=== PATIENT | male | born 1940 | race Hispanic/Latino ===

== ENCOUNTER → 2019-02-06 | Outpatient (CLI) | payer OTHER ==
[~2019-02-06] MED LIST: AMIO200T5 PO; ASPI-1181 PO; CARV12.511 PO; CHOL500050 PO; NITR0.3T11 SL; SACU1TAB PO; SIMV20TA6 PO; TYL3 PO
== END | disposition home or self-care (01) ==
LOC: SHCH 13:18
PROVIDERS: ATTEND Internal Medicine Cardiovascular Disease
DX: I35.1 Nonrheumatic aortic (valve) insufficiency (principal); I25.5 Ischemic cardiomyopathy; I11.9 Hypertensive heart disease without heart failure
CPT/HCPCS: 93306

== ENCOUNTER 2023-10-28 07:02 | Day surgery (SDC) | payer OTHER ==
[2023-10-22 12:25] LABS: BASOPHILS # (AUTO) 0.06 K/uL (0.00-0.20); EOSINOPHILS # (AUTO) 0.28 K/uL (0.00-0.70); EOSINOPHILS % (AUTO) 4.6 % (0.0-8.0); HEMATOCRIT 39.6 % (42-54); IMMATURE GRANULOCYTE ABSOLUTE 0.02 K/uL (0-1); LYMPHOCYTES # (AUTO) 1.4 K/uL (1.0-4.8); LYMPHOCYTES % (AUTO) 23.2 % (21.0-51.0); MEAN CORPUSCULAR HEMOGLOBIN 30.4 pg (27.0-33.0); MEAN CORPUSCULAR HGB CONC 32.8 g/dL (32.0-36.0); MEAN CORPUSCULAR VOLUME 92.7 fL (79-99); MONOCYTES # (AUTO) 0.6 K/uL (0.1-1.0); MONOCYTES % (AUTO) 10.5 % (3.0-13.0); NEUTROPHILS # (AUTO) 3.7 K/uL (1.8-7.7); NEUTROPHILS % (AUTO) 60.4 % (40.0-77.0); PLATELET COUNT (AUTO) 121 K/uL (130-400); RED BLOOD CELL COUNT(AUTO) 4.27 MIL/uL (4.50-6.20); RED CELL DISTRIBUTION WIDTH 15.1 % (11.0-15.5); WHITE BLOOD COUNT (AUTO) 6.1 K/uL (4.8-10.8)
[2023-10-22 12:34] LABS: INR 1.03 (0.85-1.15); PROTHROMBIN TIME 11.9 SEC (9.6-11.6)
[2023-10-22 12:36] LABS: PARTIAL THROMBOPLASTIN TIME 32.1 SEC (26.3-35.5)
[2023-10-22 12:39] LABS: APPEARANCE,URINE CLOUDY (CLEAR); BILIRUBIN,URINE NEGATIVE (NEGATIVE); COLOR,URINE YELLOW (YELLOW); GLUCOSE, URINE (UA) >=1000 mg/dL (NEGATIVE); KETONES,URINE NEGATIVE (NEGATIVE); LEUKOCYTE ESTERASE ,URINE 500 Leu/uL (NEGATIVE); NITRATE,URINE NEGATIVE (NEGATIVE); OCCULT BLOOD,URINE LARGE (NEGATIVE); PROTEIN,URINE 50 mg/dL (NEGATIVE); UROBILINOGEN,URINE 0.2 mg/dL (0.2-1.0)
[2023-10-22 12:40] LABS: ADD UA MICROSCOPIC YES
[2023-10-22 12:46] LABS: BACTERIA,URINE MOD /HPF (None Seen); MUCUS,URINE RARE LPF (None Seen); RBC,URINE TNTC /HPF (0-1); WBC CLUMP MANY /HPF (0-1); WBC,URINE TNTC /HPF (0-1)
[2023-10-22 12:55] VITALS: BP 138/66; PULSE 67; RESP 16
[2023-10-22 13:42] LABS: CREATININE 1.1 mg/dL (0.5-1.5); POTASSIUM 4.1 mmol/L (3.5-5.1)
[~2023-10-28] VITALS: Ht 167.6 cm; Wt 68.8 kg
[2023-10-28] VITALS (18 sets, daily range): BP systolic 131–163; BP diastolic 70–87; PULSE 59–67; RESP 12–18
[2023-10-28] MEDS: ISOVUE-300 100 ML VIAL IV ONE
[2023-10-28] MEDS: CEFAZOLIN SODIUM 2 GM VIAL IVPB ONE
[~2023-10-28 07:02] MED LIST changes: +AMIO100T4 PO; -AMIO200T5 PO; +APIX5TAB PO; -ASPI-1181 PO; +ATOR40TA71 PO; +CARV25TA PO; -CHOL500050 PO; +DAPA10TA PO; +FERS325 PO; +FINA5TAB41 PO; +LISI5TAB21 PO; -NITR0.3T11 SL; +NITR0.4T50 SL; -SACU1TAB PO; -SIMV20TA6 PO; +TAMS-1 PO; -TYL3 PO
[2023-10-28] MEDS ORDERED: CEFTRIAXONE 1G VIAL ONE (08:05)
[2023-10-28] MEDS: LACTATED RINGERS 1000ML 1,000 ML IV ONE (08:48)
[2023-10-28] MEDS: GENTAMICIN 80 MG/NS 100 ML PB 100 ML IV ONE (10:20)
[2023-10-28] MEDS ORDERED: LIDOCAINE PF 100MG/5ML (2%) SYRINGE 5ML ONE (10:43)
[2023-10-28] MEDS ORDERED: GLYCOPYRROLATE 0.2 MG/ML 5 ML VIAL ONE (10:44)
[2023-10-28] MEDS ORDERED: ROCURONIUM BROMIDE 10MG/1ML 5ML VL ONE (10:44)
[2023-10-28] MEDS ORDERED: PROPOFOL 10 MG/ML 20ML VIAL IV ONE (10:44)
[2023-10-28] MEDS ORDERED: FENTANYL CITRATE PF 50 MCG/1 ML 2ML VIAL ONE ×2 (10:44→11:54)
[2023-10-28] MEDS ORDERED: MIDAZOLAM HCL 1 MG/ML 2ML VIAL ONE (10:57)
[2023-10-28] MEDS ORDERED: ONDANSETRON 4MG INJ ONE (12:19)
[2023-10-28] MEDS ORDERED: NEOSTIGMINE METHYLSULFATE 1MG/ML IV ONE (12:32)
== END 2023-10-28 14:50 | disposition home or self-care (01) ==
LOC: DAH 07:02
PROVIDERS: ATTEND Urology
DX: N40.1 Benign prostatic hyperplasia with lower urinary tract symptoms (principal); N41.0 Acute prostatitis; N41.1 Chronic prostatitis; R33.8 Other retention of urine; E78.5 Hyperlipidemia, unspecified; E11.9 Type 2 diabetes mellitus without complications; I11.0 Hypertensive heart disease with heart failure; I50.22 Chronic systolic (congestive) heart failure; F17.210 Nicotine dependence, cigarettes, uncomplicated; Z83.3 Family history of diabetes mellitus; Z82.49 Family history of ischemic heart disease and other diseases of the circulatory system; Z79.899 Other long term (current) drug therapy
CPT/HCPCS: 80048; 85025; 85610; 85730; 87077; 87088; 87186; 81001; 36415; 71045; 93005; 52648; 88305; A6260; A4663; J7030; A4355; A4354; J7120; J3010 ×2; J3490 ×2; J2001; J0696; J2250; J2704; J2405; J2710; J1580; A4358 ×2; A4930; A4215; A4223; A4335; A4222; A4221; A5113; A4600; Q9967; J0690

== ENCOUNTER → 2024-03-09 | Outpatient (CLI) | payer OTHER ==
[~2024-03-09] MED LIST changes: +IOHEXOL-350 75 ML VIAL IV ONE
== END | disposition home or self-care (01) ==
LOC: RAH 07:40
PROVIDERS: ATTEND Family Medicine
DX: K57.30 Diverticulosis of large intestine without perforation or abscess without bleeding (principal); K80.20 Calculus of gallbladder without cholecystitis without obstruction; N28.1 Cyst of kidney, acquired; K40.90 Unilateral inguinal hernia, without obstruction or gangrene, not specified as recurrent; K82.8 Other specified diseases of gallbladder
CPT/HCPCS: 74177; Q9967

== ENCOUNTER → 2024-05-29 | Outpatient (CLI) | payer OTHER ==
[~2024-05-29] MED LIST changes: -IOHEXOL-350 75 ML VIAL IV ONE
[2024-05-29 16:00] LABS: CREATININE 1.6 mg/dL (0.5-1.3)
== END | disposition home or self-care (01) ==
LOC: LAB 14:43
PROVIDERS: ATTEND Student in an Organized Health Care Education/Training Program
DX: C18.9 Malignant neoplasm of colon, unspecified (principal); K59.00 Constipation, unspecified
CPT/HCPCS: 36415; 82565; 84520

== ENCOUNTER → 2024-06-01 | Outpatient (CLI) | payer OTHER ==
[~2024-06-01] MED LIST changes: +IOHEXOL-350 75 ML VIAL IV ONE
== END | disposition home or self-care (01) ==
LOC: RAH 12:29
PROVIDERS: ATTEND Student in an Organized Health Care Education/Training Program
DX: K80.20 Calculus of gallbladder without cholecystitis without obstruction (principal); N40.0 Benign prostatic hyperplasia without lower urinary tract symptoms; K57.30 Diverticulosis of large intestine without perforation or abscess without bleeding; I71.21 Aneurysm of the ascending aorta, without rupture; I25.10 Atherosclerotic heart disease of native coronary artery without angina pectoris; R10.9 Unspecified abdominal pain; R22.9 Localized swelling, mass and lump, unspecified
CPT/HCPCS: 71250; 74177; Q9967

== ENCOUNTER 2024-08-01 12:06 | Emergency (ER) | payer OTHER ==
[~2024-08-01] VITALS: Ht 180.3 cm; Wt 64.4 kg
[~2024-08-01 12:06] MED LIST changes: -IOHEXOL-350 75 ML VIAL IV ONE
--- NOTE | 2024-08-01 12:23 | EKG ---
[facility] Test Date: 2024-08-01 Test Time: 12:21:23 Pat Name: FRIEDA AGUILAR Department: [facility] Patient ID: [id number] Room: Gender: M Pattern Ruler: [id number] : [id number] Requested By: LUDMILA CAVAZOS Order Number: [id number] Reading MD: Haile Curtis Measurements Intervals Garber Rate: 75 P: 73 NH: 175 QRS: 72 QRSD: 118 T: 31 QT: 418 QTc: 469 Interpretive Statements Sinus rhythm Nonspecific intraventricular conduction delay Probable inferior infarct, old Compared to ECG 10/22/2023 12:10:12 Intraventricular conduction delay now present Myocardial infarct finding now present Left bundle-branch block no longer present Electronically Signed On 08-01-2024 19:16:52 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
--- NOTE | 2024-08-01 12:35 | ERN ---
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 Patient was seen by PCP and sent to ED for further evaluation due to being hypotensive. Patient was visiting PCP today due to having neck pain which has been ongoing for the past month but worsened this morning. Patient has history of pacemaker, CHF, BPH, AFib, peripheral neuropathy, ischemic cardiomyopathy. Medications: lisinopril, atorvastatin, Eliquis, carvedilol. Patient did not take lisinopril this morning. Allergies: Coded Allergies: No Known Drug Allergies (Verified Allergy, Unknown, 06/23/17) Home Meds Reported Medications Lisinopril (Lisinopril) 5 Mg Tablet, 5 MG PO DAILY, TAB 10/22/23 Ferrous Sulfate (Ferrous Sulfate) 325 Mg (65 Mg Iron) Ectab, 325 MG PO DAILY, TAB.EC 10/22/23 Atorvastatin Calcium (Atorvastatin Calcium) 40 Mg Tablet, 40 MG PO HS, TAB 10/22/23 Apixaban (Eliquis) 5 Mg Tablet, 5 MG PO BID, TAB MAY START ELIQUIS ON WEDNESDAY,10/30/2023, IF NO EXCESSIVE BLEEDING. 10/22/23 Amiodarone HCl (Amiodarone HCl) 100 Mg Tablet, 100 MG PO DAILY, TAB 10/22/23 Dapagliflozin Propanediol (Farxiga) 10 Mg Tablet, 10 MG PO DAILY, TAB 10/22/23 Nitroglycerin (Nitroglycerin) 0.4 Mg Tab.subl, 0.4 MG SL AD PRN for CHEST PAIN, TAB.SL 10/22/23 Carvedilol (Carvedilol) 12.5 Mg Tablet, 12.5 MG PO HS, TAB 10/22/23 Carvedilol (Carvedilol) 25 Mg Tablet, 25 MG PO DAILY, TAB 10/22/23 Finasteride (Finasteride) 5 Mg Tablet, 5 MG PO DAILY, TAB 10/22/23 Tamsulosin HCl (Flomax) 0.4 Mg Cap.er.24h, 0.4 MG PO DAILY, CAPSULE. 10/22/23 Past Medical History Past Medical History: A-Fib, CHF, Heart Disease, Hypertension, Vascular Disease Medical History Other: RT CHEEK CARCINOMA, MYOPATHY, NEUROPATHY Past Surgical History: Appendectomy, Pacer/AICD Surgical History Other: HERNIA ROS Dictation Constitutional: Positive for hypotensive Negative for fever,chills, and weight loss Eyes: Negative for injury, pain,redness, and discharge ENT: Negative for injury,pain or swelling Cardiovascular: Negative for chest pain, palpitations, and edema Respiratory: Negative for shortness of breath, cough, and wheezing, Abdomen/GI: Negative for abdominal pain, nausea, vomiting, diarrhea, and constipation Back: Negative for injury and pain : Negative for injury, bleeding and discharge MS/Extremity: Negative for injury and deformity Skin: Negative for rash, and discoloration Neuro: Negative for headache, weakness, numbness, tingling, and seizure Psych: Negative for suicide ideation, homicidal ideation, and hallucinations Physical Exam Physical Exam Dictation General: awake, alert, NAD Head/Face: Normocephalic, atraumatic Eyes: PERRL, EOMI, vision at baseline ENT: oral cavity clear, TMs clear, no signs of infection Neck: Trachea midline, supple, no nuchal rigidity Cardiovascular: RRR, normal S1/S2, No MRGs, no JVD Respiratory: CTAB, no respiratory distress, No rales or wheezes Abdomen: Soft, non-tender, non-distended, normal bowel sounds, no guarding or rebound. Skin: Warm, dry, normal turgor, no rash MS/Extremity: Pulses equal, no cyanosis, neurovascular intact, FROM Neuro: COAx4, GCS 15, strength 5/5, CN 2-12 intact, normal cerebellar exam, normal gait, Psych: Normal behavior, mood, and affect normal Results Laboratory and Microbiology Lab and Micro Result Laboratory Tests Test 08/01/24 12:29 08/01/24 16:22 White Blood Count 11.6 K/uL (4.8-10.8) H Red Blood Count 3.51 MIL/uL (4.50-6.20) L Hemoglobin 10.2 g/dL (14.0-18.0) L Hematocrit 32.4 % (42-54) L Mean Corpuscular Volume 92.3 fL (79-99) Mean Corpuscular Hemoglobin 29.1 pg (27.0-33.0) Mean Corpuscular Hemoglobin Concent 31.5 g/dL (32.0-36.0) L Red Cell Distribution Width 16.4 % (11.0-15.5) H Platelet Count 116 K/uL (130-400) L Mean Platelet Volume 10.9 fL (7.5-10.5) H Immature Granulocyte % (Auto) 1.4 % (0-1) H Neutrophils (%) (Auto) 79.6 % (40.0-77.0) H Lymphocytes (%) (Auto) 6.4 % (21.0-51.0) L Monocytes (%) (Auto) 11.9 % (3.0-13.0) Eosinophils (%) (Auto) 0.3 % (0.0-8.0) Basophils (%) (Auto) 0.4 % (0.0-5.0) Neutrophils # (Auto) 9.3 K/uL (1.8-7.7) H Lymphocytes # (Auto) 0.7 K/uL (1.0-4.8) L Monocytes # (Auto) 1.4 K/uL (0.1-1.0) H Eosinophils # (Auto) 0.03 K/uL (0.00-0.70) Basophils # (Auto) 0.05 K/uL (0.00-0.20) Absolute Immature Granulocyte (auto 0.16 K/uL (0-1) Nucleated Red Blood Cells 0.0 % (0.0-0.19) White Cell Morphology Comment See comments Prothrombin Time 13.4 SEC (9.6-11.6) H Prothromb Time International Ratio 1.26 (0.85-1.15) H Sodium Level 137 mmol/L (136-145) Potassium Level 3.5 mmol/L (3.5-5.1) Chloride Level 102 mmol/L (101-111) Carbon Dioxide Level 25 mmol/L (21-32) Blood Urea Nitrogen 51 mg/dL (7-18) H Creatinine 1.8 mg/dL (0.5-1.3) H Glomerular Filtration Rate Calc 37 mL/min (>90) Random Glucose 127 mg/dL (70-105) H Total Calcium 8.7 mg/dL (8.5-10.1) Magnesium Level 1.90 mg/dL (1.80-2.40) Total Creatine Kinase 86 U/L (21-232) Troponin I High Sensitivity 15 ng/L (4-75) 10 ng/L (4-75) B-Type Natriuretic Peptide 145 pg/mL (0-100) H Labs Reviewed?: Yes EKG/XRAY/US/CT/MRI EKG Comment EKG 08/01/2024 time 12:21 p.m. ventricular rate 75, sinus rhythm, UT 175, QRS D 118, QT 418. Nonspecific intraventricular conduction delay. Probable inferior infarct. MDM MDM: Differential diagnosis: Hypotension, neck pain Previous outside records reviewed: Old ER visits. Need for hospitalization: Patient does not meet criteria for hospitalization. Need for emergency major/minor surgery: No Patient's prior external medical records from other ER visits were reviewed by me as indicated. Prior testing and results from previous visits were reviewed. Prior tests were taken into account with medical decision making and resource utilization, independent historian/historians were used to obtain complete medical history. I independently interpreted the test that were performed, results were reviewed by me and considered findings on radiology if ordered. Medical management and examination interpretation discussions were had by me with other qualified healthcare professionals as indicated for the patient's care. ED Course Orders Procedure Category Date Status Time Cbc With Differential LAB 08/01/24 Complete 12:16 Prothrombin Time With LAB 08/01/24 Complete INR 12:16 B-Type Natriuretic LAB 08/01/24 Complete Peptide 12:16 Chest 1vw RAD 08/01/24 Resulted 12:16 12 Lead Ekg Tracing- EKG 08/01/24 Complete Technical 12:16 Magnesium LAB 08/01/24 Complete 12:16 Creatine Kinase, Total LAB 08/01/24 Complete 12:16 Troponin I High LAB 08/01/24 Complete Sensitivity 12:16 Urinalysis Profile LAB 08/01/24 Logged 12:16 Basic Metabolic Panel LAB 08/01/24 Complete 12:16 0.9% Nacl 500ml PHA 08/01/24 Complete Iv.Soln (Ns 500ml 12:30 12 Lead Ekg Tracing- EKG 08/01/24 Logged Technical 12:17 Troponin I High LAB 08/01/24 Complete Sensitivity 15:48 Current Medications Medications (Trade) Dose Ordered Sig/Mell Route PRN Reason Start Time Stop Time Status Last Admin Dose Admin Sodium Chloride 500 ml @ 0 mls/hr ONCE ONCE IV 08/01/24 12:30 08/01/24 12:31 DC 08/01/24 15:03 Vital Signs Date Time Temp Pulse Resp B/P (MAP) Pulse Ox O2 Delivery O2 Flow Rate FiO2 08/01/24 15:03 98.2 67 18 106/51 94 Room Air* 0 21 08/01/24 12:07 98.2 80 16 82/52 0 Room Air 0 HEART Score Response (Comments) Value History: Low suspicion (0) 0 EKG: Normal 0 Age: > 65yrs (+2) 2 Risk Factors: 1-2 risk factors (+1) 1 Initial Troponin: Normal limit (0) 0 HEART Score Risk: Mod Risk for MACE (4-6) Total 3 DX & DISP Disposition: Discharge Departure Impression: Primary Impression: Hypokalemia Additional Impression: Hypomagnesemia Condition: Stable Scripts Potassium Chloride (K-Dur/Klor-Con) 20 Meq Ertab 1 TAB PO DAILY for 7 Days, #7 TAB 0 Refills Prov: LUDMILA CAVAZOS MD 08/01/24 Additional Instructions: FOLLOW-UP WITH PRIMARY CARE PROVIDER IN 1 TO 2 DAYS. TAKE MEDICATIONS DIRECTED HERE IN THE EMERGENCY ROOM. OKAY TO CONTINUE HOME MEDICATIONS UNLESS OTHERWISE DISCUSSED DURING YOUR VISIT IN THE EMERGENCY ROOM TODAY. RETURN TO YOUR NEAREST EMERGENCY ROOM IF SYMPTOMS WORSEN OR IF THERE IS NO IMPROVEMENT. C ALL 911 IF YOU NEED IMMEDIATE ASSISTANCE. TAKE TYLENOL [id number] NEEDED AND IF NO CONTRAINDICATIONS ARE PRESENT. INCREASE ORAL HYDRATION. A WOUND CULTURE OR URINE CULTURE WAS ORDERED HERE IN THE EMERGENCY ROOM DEPARTMENT PLEASE FOLLOW-UP WITH PRIMARY CARE PROVIDER AND ADVISE THEM TO GET REPEAT PORTS FROM OUR FACILITY. IF YOU HAD ANY DYLAN WRAP/SPLINTS THAT WERE APPLIED HERE, PLEASE DO NOT REMOVE THEM UNTIL YOU SEE YOUR PRIMARY CARE OR SPECIALTY. Referrals: Referrals: JEROD FELIX M.D. (PCP) Time of Disposition: 16:59 I have reviewed, & agreed with my scribe's, documentation. (Entered by Luciano Harris, acting as a scribe for Dr. Cavazos) I personally scribed for LUDMILA CAVAZOS MD (TUAN) on 08/01/24 at 12:35. Electronically submitted by Luciano Harris ([email or web address]). I personally scribed for LUDMILA CAVAZOS MD (TUAN) on 08/01/24 at 12:50. Electronically submitted by Luciano Harris (Bind[employer]). I personally scribed for LUDMILA CAVAZOS MD (TUAN) on 08/01/24 at 15:06. Electronically submitted by Luciano Harris ([employer]). I personally scribed for LUDMILA CAVAZOS MD (TUAN) on 08/01/24 at 16:10. Electronically submitted by Luciano Harris ([employer]). I personally scribed for LUDMILA CAVAZOS MD (TUAN) on 08/01/24 at 16:38. Electronically submitted by Luciano Harris ([employer]). LUDMILA CAVAZOS MD Aug 01, 2024 12:35
[2024-08-01 12:36] LABS: BASOPHILS # (AUTO) 0.05 K/uL (0.00-0.20); BASOPHILS % (AUTO) 0.4 % (0.0-5.0); EOSINOPHILS # (AUTO) 0.03 K/uL (0.00-0.70); EOSINOPHILS % (AUTO) 0.3 % (0.0-8.0); HEMATOCRIT 32.4 % (42-54); IMMATURE GRANULOCYTE ABSOLUTE 0.16 K/uL (0-1); LYMPHOCYTES # (AUTO) 0.7 K/uL (1.0-4.8); LYMPHOCYTES % (AUTO) 6.4 % (21.0-51.0); MEAN CORPUSCULAR HEMOGLOBIN 29.1 pg (27.0-33.0); MEAN CORPUSCULAR HGB CONC 31.5 g/dL (32.0-36.0); MEAN CORPUSCULAR VOLUME 92.3 fL (79-99); MONOCYTES # (AUTO) 1.4 K/uL (0.1-1.0); MONOCYTES % (AUTO) 11.9 % (3.0-13.0); NEUTROPHILS # (AUTO) 9.3 K/uL (1.8-7.7); NEUTROPHILS % (AUTO) 79.6 % (40.0-77.0); PLATELET COUNT (AUTO) 116 K/uL (130-400); RED BLOOD CELL COUNT(AUTO) 3.51 MIL/uL (4.50-6.20); RED CELL DISTRIBUTION WIDTH 16.4 % (11.0-15.5); WHITE BLOOD COUNT (AUTO) 11.6 K/uL (4.8-10.8)
[2024-08-01 12:50] LABS: CREATININE 1.8 mg/dL (0.5-1.3); INR 1.26 (0.85-1.15); POTASSIUM 3.5 mmol/L (3.5-5.1); PROTHROMBIN TIME 13.4 SEC (9.6-11.6)
[2024-08-01 12:54] LABS: MAGNESIUM 1.9 mg/dL (1.80-2.40)
[2024-08-01 12:59] LABS: B-TYPE NATRIURETIC PEPTIDE 145 pg/mL (0-100)
--- NOTE | 2024-08-01 13:11 | HMCIMG ---
CHEST 1VW HISTORY: Chest pain COMPARISON: None FINDINGS: A frontal projection of the chest was obtained. No acute pulmonary infiltrates is seen. The heart is borderline enlarged. Pacemaker is seen entering from the left. Degenerative changes are seen. Aortic calcifications are seen. IMPRESSION: 1. No acute pulmonary infiltrate is seen.
[2024-08-01] MEDS: 0.9% NACL 500ML IV.SOLN 500 ML IV ONE ×2 (15:03→17:20)
[2024-08-01] MEDS ORDERED: POTA-192 PO (17:01)
[2024-08-01 17:22] VITALS: BP 111/48; PULSE 72; RESP 18; TEMP 98.2; O2SAT 98
== END 2024-08-01 18:22 | disposition home or self-care (01) ==
LOC: EDH 12:06
DX: E87.6 Hypokalemia (principal); E83.42 Hypomagnesemia; I11.0 Hypertensive heart disease with heart failure; I50.9 Heart failure, unspecified; I48.91 Unspecified atrial fibrillation; Z79.01 Long term (current) use of anticoagulants; Z79.84 Long term (current) use of oral hypoglycemic drugs; Z79.899 Other long term (current) drug therapy; Z90.49 Acquired absence of other specified parts of digestive tract; Z95.810 Presence of automatic (implantable) cardiac defibrillator
CPT/HCPCS: 99285; 71045; 82550; 83735; 84484 ×2; 80048; 83880; 85025; 85610; 36415; 93005; J7040 ×2